=== PATIENT | male | born 1975 | race Caucasian/White ===

== ENCOUNTER 2018-03-18 15:00 | Outpatient (RCR) | payer OTHER ==
[~2018-03-18 15:00] MED LIST: AMBIEN 5MG TABLE5 MG PO; AMOXICILLIN 50500 MG PO; AMOXICILLIN 8751 TAB PO; AMOXICILLIN875 MG PO; ATARAX 25MG25 MG/TAB PO; BENADRYL50 MG PO; CIPRO 500MG TA500 MG PO; CLARITIN 1010 MG/TAB PO; CLEOCIN HCL300 MG PO; KLONOPIN 0.5MG0.5 MG PO; MEDROL 4MG DOSPA4 MG PO; MIRTAZAPINE7.5 MG PO; NO HOME MEDICATIONS; NORCO 325 MG-51 TAB PO; PREDNISONE20 MG PO; SUDAFED30 MG PO; TUSS PO; XANAX 0.5MG0.5 MG PO; ZOVIRAX 200MG200 MG PO; ZOVIRAX800 MG PO
== END 2018-03-31 11:53 | disposition home or self-care (01) ==
LOC: MKS.ESL.PT 15:00
DX: S49.92XD Unspecified injury of left shoulder and upper arm, subsequent encounter (principal); X50.0XXD Overexertion from strenuous movement or load, subsequent encounter